=== PATIENT | female | born 1945 | race Caucasian/White ===

== ENCOUNTER 2021-10-04 00:44 | Emergency (ER) | payer MEDICARE, BC ==
--- NOTE | 2021-10-04 01:16 | EDM.PDOC ---
ED HPI GENERAL MEDICAL PROBLEM - General Chief Complaint: Respiratory Problem Stated Complaint: COUGH Time Seen by Provider: 10/04/21 01:02 MDT Source of Information: Reports: Patient History Limitations: Reports: No Limitations - History of Present Illness INITIAL COMMENTS - FREE TEXT/NARRATIVE: Patient is a 76-year-old female who is complaining of having a nonproductive cough which started earlier today but got much worse when she went to lay down to sleep tonight. Patient states she is coughing incessantly and this is keeping her from sleeping. She denies any fever or chills any nausea vomiting diarrhea any body aches or change in smell or taste. Patient is a cigarette smoker. She denies any history of COPD or lung disease. Onset: Today Duration: Getting Worse Location: Reports: Chest Improves with: Reports: None Worsens with: Reports: Rest Associated Symptoms: Reports: No Other Symptoms - Related Data Allergies Allergy/AdvReac Type Severity Reaction Status Date / Time No Known Allergies Allergy Verified 10/04/21 00:55 Home Meds: Home Meds Azithromycin 250 mg PO DAILY #6 tablet 10/04/21 [Rx] Codeine/guaiFENesin [Robitussin AC] 10 ml PO QID PRN #1 bottle 10/04/21 [Rx] Insulin Aspart [NovoLOG] 1 unit SQ ASDIRECTED 10/04/21 [History] Levothyroxine Sodium [Levothyroxine] 75 mcg PO DAILY 10/04/21 [History] amLODIPine [Norvasc] 5 mg PO DAILY 10/04/21 [History] atorvaSTATin [Lipitor] 10 mg PO DAILY 10/04/21 [History] lisinopriL [Lisinopril] 10 mg PO DAILY 10/04/21 [History] Past Medical History Cardiovascular History: Reports: High Cholesterol, Hypertension Gastrointestinal History: Reports: GERD Endocrine/Metabolic History: Reports: Diabetes, Type I - Past Surgical History HEENT Surgical History: Reports: Tonsillectomy GI Surgical History: Reports: Colonoscopy Social & Family History - Family History Family Medical History: No Pertinent Family History - Tobacco Use Tobacco Use Status *Q: Current Every Day Tobacco User Years of Tobacco use: 57 Packs/Tins Daily: 1 - Caffeine Use Caffeine Use: Reports: Soda - Recreational Drug Use Recreational Drug Use: No ED ROS GENERAL - Review of Systems Review Of Systems: Comprehensive ROS is negative, except as noted in HPI. Constitutional: Reports: No Symptoms Respiratory: Reports: Cough. Denies: Shortness of Breath, Wheezing, Sputum Cardiovascular: Reports: No Symptoms ED EXAM, GENERAL - Physical Exam Exam: See Below Exam Limited By: No Limitations General Appearance: Alert, No Apparent Distress Head: Normocephalic Neck: Normal Inspection, Supple Respiratory/Chest: No Respiratory Distress, Lungs Clear, Normal Breath Sounds. No: Decreased Breath Sounds, Rales, Rhonchi, Wheezing Cardiovascular: No JVD, Tachycardia GI/Abdominal: Normal Bowel Sounds Back Exam: Normal Inspection Extremities: Normal Inspection Neurological: Alert, Oriented Psychiatric: Normal Affect, Normal Mood Skin Exam: Warm, Dry Course - Vital Signs Text/Narrative:: I am starting her on some Robitussin-AC and Zithromax. I will give her a prescription she can fill tomorrow at [facility] after noon to 4 PM. I have encouraged the patient to stop smoking cigarettes. Last Recorded V/S: Last Vital Signs Temp 96.9 F 10/04/21 00:52 Pulse 106 H 10/04/21 00:52 Resp 17 10/04/21 00:52 BP 178/83 H 10/04/21 00:52 Pulse Ox 96 10/04/21 00:52 Departure - Departure Time of Disposition: 01:28 Disposition: Home, Self-Care 01 Condition: Good Clinical Impression: Acute bronchitis - Discharge Information Instructions: Acute Bronchitis, Adult, [id number] Referrals: Brian Cee MD [Primary Care Provider] - Additional Instructions: Quit smoking cigarettes. Return to ER if having fever chills vomiting or worse. Zithromax and Robitussin-AC as prescribed. Follow-up with PCP for recheck this Tuesday if not improving. Sepsis Event Note (ED) - Evaluation Sepsis Screening Result: No Definite Risk - Focused Exam Vital Signs: Vital Signs Temp Pulse Resp BP Pulse Ox 10/04/21 00:52 96.9 F 106 H 17 178/83 H 96
[2021-10-04] MEDS ORDERED: Codeine/guaiFENesin 10-100 MG/5 ML Syrup 5 ML Syringe PO ONE (01:22)
[2021-10-04] MEDS ORDERED: Azithromycin 250 MG Tab PO SCH (01:30)
[2021-10-04] MEDS ORDERED: Codeine/Promethazine 10-6.25 MG/5 ML Syrup 5 ML UD Cup PO ONE (01:35)
[2021-10-04 01:52] LABS: CORONAVIRUS COVID-19 NAA NEGATIVE (NEGATIVE)
== END 2021-10-04 01:45 | disposition home or self-care (01) ==
LOC: JD.ED 00:44
DX: J20.9 Acute bronchitis, unspecified (principal); E78.00 Pure hypercholesterolemia, unspecified; I10 Essential (primary) hypertension; E10.9 Type 1 diabetes mellitus without complications; Z72.0 Tobacco use; Z79.899 Other long term (current) drug therapy; Z20.822 Contact with and (suspected) exposure to COVID-19
CPT/HCPCS: 0240U; 99283; A9270; 99282

== ENCOUNTER 2022-02-27 11:36 | Emergency (ER) | payer MEDICARE, BC ==
[2022-02-27] MEDS ORDERED: Sodium Chloride 0.9% 10 ML Syringe FLUSH PRN (11:53)
[2022-02-27] MEDS ORDERED: Sodium Chloride 0.9% 1,000 ML IV STA (12:42)
== END 2022-02-27 14:00 | disposition home or self-care (01) ==
LOC: JD.ED 11:36
DX: R42 Dizziness and giddiness (principal); E78.00 Pure hypercholesterolemia, unspecified; I10 Essential (primary) hypertension; K21.9 Gastro-esophageal reflux disease without esophagitis; E10.9 Type 1 diabetes mellitus without complications; Z79.899 Other long term (current) drug therapy; Z72.0 Tobacco use; Z20.822 Contact with and (suspected) exposure to COVID-19
CPT/HCPCS: 36415; 70450; 80053; 81001; 82947; 84484; 85025; 85379; 86140; 93005; 99284; J7030; U0002; 93010; 99285; J3490

== ENCOUNTER 2023-07-20 07:41 | Emergency (ER) | payer MEDICARE, BC ==
[2023-07-20 08:16] LABS: BASOPHILS ABSOLUTE AUTO 0.1 K/mm3 (0.0-0.2); BASOPHILS PERCENT AUTO 1.6 % (0.0-1.0); EOSINOPHILS ABSOLUTE AUTO 0.3 K/mm3 (0.0-0.4); EOSINOPHILS PERCENT AUTO 4.2 % (0.0-6.0); HEMATOCRIT 45.1 % (37.0-47.0); IMMATURE GRAN ABSOLUTE AUTO 0.01 K/mm3 (0.00-0.05); IMMATURE GRAN PERCENT AUTO 0.2 % (0.0-0.4); LYMPHOCYTES ABSOLUTE AUTO 2.3 K/mm3 (1.0-4.8); LYMPHOCYTES PERCENT AUTO 36.9 % (24.0-44.0); MEAN CORPUSCULAR HEMOGLOBIN 32.2 pg (28.0-32.0); MEAN CORPUSCULAR HGB CONC 33.3 g/dl (32.0-36.0); MEAN CORPUSCULAR VOLUME 96.8 fl (83.0-99.0); MONOCYTES ABSOLUTE AUTO 0.6 K/mm3 (0.0-0.8); MONOCYTES PERCENT AUTO 10.1 % (0.0-8.0); NEUTROPHILS ABSOLUTE AUTO 2.9 K/mm3 (1.8-7.7); PLATELET COUNT,PLT 142 K/mm3 (150-400); RED BLOOD CELL COUNT 4.66 M/mm3 (4.10-5.30); WHITE BLOOD CELL COUNT,WBC 6.16 K/mm3 (3.9-11.3)
[2023-07-20 08:37] LABS: A/G RATIO 1.2 (1-2); ALBUMIN 3.6 g/dl (3.4-5.0); ANION GAP 10.9 (5-15); BILIRUBIN TOTAL 0.6 mg/dL (0.2-1.0); BUN/CREATININE RATIO 16.7 (14-18); CALCIUM 8.9 mg/dL (8.5-10.1); CREATININE 0.9 mg/dL (0.55-1.02); EST CRCL DRUG DOSING (CG) 38.94 mL/min; POTASSIUM,K 3.9 mEq/L (3.5-5.1); PROTEIN TOTAL,TP 6.5 g/dl (6.4-8.2)
[2023-07-20] MEDS ORDERED: Iopamidol 612 MG/ML 100 ML Bottle IVPUSH ONE (08:53)
[2023-07-20] MEDS ORDERED: Sodium Chloride 0.9% 10 ML Syringe FLUSH PRN (08:53)
== END 2023-07-20 09:15 | disposition left against medical advice (07) ==
LOC: JD.ED 07:41
DX: R22.1 Localized swelling, mass and lump, neck (principal); E78.00 Pure hypercholesterolemia, unspecified; I10 Essential (primary) hypertension; E10.9 Type 1 diabetes mellitus without complications; E03.9 Hypothyroidism, unspecified; F17.210 Nicotine dependence, cigarettes, uncomplicated; Z79.4 Long term (current) use of insulin; Z79.899 Other long term (current) drug therapy
CPT/HCPCS: 36415; 70360; 70360-26; 80053; 85025; 99284